=== PATIENT | female | born 1965 | race Caucasian/White ===

== ENCOUNTER 2018-02-26 01:17 | Emergency (ER) | payer OTHER ==
[~2018-02-26] VITALS: Ht 172.7 cm; Wt 102.6 kg
[2018-02-26 01:24] VITALS: BP 140/82; PULSE 89; TEMP 36.7; O2SAT 98; Ht 172.7 cm; Wt 102.6 kg
--- NOTE | 2018-02-26 04:13 | EMERGENCY ROOM VISIT NOTE ---
ED Visit Note First contact with patient: 01:28 CHIEF COMPLAINT: Finger injury HISTORY OF PRESENT ILLNESS: This 52-year-old patient presents to the emergency department after injuring the right second finger at work when she fell backwards when the table slipped out. This is a work-related injury. The patient rates the pain as throbbing and 5/10. The patient has limited range of motion of the finger. No numbness or tingling. No lacerations. No other injuries. The patient has not had previous fracture to this finger. The patient has taken nothing for the pain. REVIEW OF SYSTEMS: A 6 system review of systems was completed with positives and pertinent negatives in the HPI. ALLERGIES: Sulfa MEDICATIONS: Metformin, reviewed PMH: Diabetes, hypertension SOCIAL HISTORY: No drug use PHYSICAL EXAM: Vital Signs: Reviewed Nurse's notes, vital signs stable. GENERAL : Pleasant female, in no acute distress, but appears to be in pain, well- developed, well-nourished. MUSCULOSKELETAL: There is a deformity of the right second finger with concerns for dislocation of the PP. The patient has limited flexion and extension of the right second finger and limited strength to resistance because of obvious dislocation. The PP joint is maximally tender. There is no ligamentous instability. There is no laceration. Capillary refill less than 2 seconds. No tenderness of the remaining fingers or hand. Full range of motion of the wrist. NEURO: Alert and oriented to person, place, and time. Normal sensation to light and sharp touch. EMERGENCY DEPARTMENT COURSE: I examined the patient. An x-ray of the right hand and showed obvious second finger dislocation. Patient verbally consented to procedure and declined pain medicine and with gentle traction midline the finger was easily reduced. It was then splinted in position of function. Postreduction films showed proper realignment of the finger. Neurovascular status rechecked and intact. Patient was advised to follow-up with orthopedics for definitive care for her finger injury. She is advised not to use his hand until cleared by orthopedics. She is advised to notify her supervisor [employer] as this is a work-related injury. Patient was advised to return to the ER immediately for severe pain, numbness, tingling, worsening signs or symptoms or as needed. The patient was discharged home in good condition. DIAGNOSIS: #1 right second finger dislocation with reduction #2 work-related injury DISCHARGE INSTRUCTIONS: As below Allergies Coded Allergies: Sulfa Antibiotics (Verified Adverse Reaction, Intermediate, upset stomach , 02/26/18) Vital Signs Date Time Temp Pulse Resp B/P (MAP) Pulse Ox O2 Delivery O2 Flow Rate FiO2 02/26/18 01:24 36.7 89 16 140/82 98 Room Air Departure Information Impression Primary Impression: Dislocation, finger closed Dispostion Home / Self-Care Condition GOOD Referrals Rolo Sin, DO Forms HOME CARE DOCUMENTATION FORM, Work Instructions, Additional Instructions: No use of right hand for 2 weeks. IMPORTANT VISIT INFORMATION Patient Instructions [facility], ED Dislocation Finger Redu Additional Instructions Ibuprofen(Motrin, Advil) may be used for fever or pain. Use 600mg every six hours as needed. Take with food. Avoid using more than 2400mg in a 24 hour period. Do not use 2400mg per day for more than three consecutive days without physician direction. Prolonged inappropriate use can lead to stomach upset or ulcers. This medication can be taken if you need to drive, work, or perform activities which may be dangerous when taking narcotic pain medication. (AND/OR) Acetaminophen(Tylenol) may be used for fever or pain. Use 1000mg every six hours as needed. Avoid using more than 3000mg in a 24 hour period. This medication can be taken if you need to drive, work, or perform activities which may be dangerous when taking narcotic pain medication. Ice compresses for 20 minutes at a time four times daily for 2-3 days. Rest and elevate your injury. Wear finger splint for the week. Do not have it so tight that you cannot feel the tip of your finger. Continue current medications. Return to the ER immediately for any numbness, tingling, severe pain, extreme swelling in the extremity or as needed. Call Orthopedics tomorrow to arrange follow up for your injury. Make sure this is approved for your workers comp. No use of right hand for 2 weeks or until cleared by orthopedics. Work Instructions Additional Work Instructions: No use of right hand for 2 weeks.
--- NOTE | 2018-02-26 05:57 | DIAGNOSTIC IMAGING REPORT ---
ADDENDUM Subluxation of the proximal phalanx of the second finger at the second metacarpophalangeal joint. No acute fracture. Electronically signed by: Ron Nick M.D. 02/26/2018 6:30 AM Dictated Date/Time: 02/26/2018 6:29 AM ORIGINAL REPORT R HAND MIN 3 VIEWS ROUTINE CLINICAL HISTORY: 52 years-old Female presenting with R hand injury. TECHNIQUE: Frontal, oblique, and lateral views the right hand were obtained. COMPARISON: None. FINDINGS: No acute fracture or malalignment. No advanced degenerative change. No radiographic soft tissue abnormality. IMPRESSION: No acute osseous injury. Electronically signed by: Ron Nick M.D. 02/26/2018 5:56 AM Dictated Date/Time: 02/26/2018 5:53 AM
--- NOTE | 2018-02-26 06:32 | DIAGNOSTIC IMAGING REPORT ---
R FINGER(S) MIN 2 VIEWS ROUTINE CLINICAL HISTORY: 52 years-old Female presenting with post reduction of right second digit. TECHNIQUE: Frontal, oblique, and lateral views of the right second finger were obtained. COMPARISON: 1:21 AM earlier the same day. FINDINGS: Interval reduction of the second metacarpophalangeal dislocation. Regional soft tissue swelling suggested. No acute fracture. No residual malalignment. IMPRESSION: Successful reduction of the previously noted dislocation of the proximal phalanx abdomen the second metacarpophalangeal joint. No acute fracture. Electronically signed by: Ron Nick M.D. 02/26/2018 6:31 AM Dictated Date/Time: 02/26/2018 6:28 AM
== END 2018-02-26 02:37 | disposition home or self-care (01) ==
LOC: C.EDB 01:18 → C.EDA 02:37
DX: S63.250A Unspecified dislocation of right index finger, initial encounter (principal); Y99.0 Civilian activity done for income or pay; W19.XXXA Unspecified fall, initial encounter; Z88.2 Allergy status to sulfonamides; E11.9 Type 2 diabetes mellitus without complications; I10 Essential (primary) hypertension